=== PATIENT | female | born 1970 | race Caucasian/White ===

== ENCOUNTER → 2017-03-28 | Outpatient (CLI) | payer BC ==
--- NOTE | 2017-03-28 14:04 | KCIC ---
PELVIS W/TV History: Menorrhagia Comparison: None. Findings: Multiple transabdominal sonographic images of the pelvis are submitted. Pelvic structures are poorly visualized. Transvaginal ultrasound: Multiple transvaginal sonographic images of the pelvis are submitted. Uterus measured 9.7 x 5.7 x 6.8 cm. Endometrium is thickened up to 2.4 cm, not associated with significant hypervascularity. There may be a partially septate uterus although poor visualization of the uterus due to bowel gas. Left ovary measured 1.9 x 2.2 x 2 cm. Right ovary measured 2.4 x 1.4 x 1.8 cm. No significant free fluid is demonstrated. There is normal low resistance vascularity of both ovaries. Impression: 1. There is thickening of the endometrium up to 2.4 cm, may be due to hyperplasia, neoplasm not excluded. There is no significant increased vascularity. There may be partially septate uterus. Electronically signed by: Andres Cabrera MD (03/28/2017 2:00 PM) [id number]
== END | disposition home or self-care (01) ==
LOC: KCIC US 12:06
PROVIDERS: ATTEND Nurse Practitioner Family
DX: N92.0 Excessive and frequent menstruation with regular cycle (principal); R93.8 Abnormal findings on diagnostic imaging of other specified body structures
CPT/HCPCS: 76830; 76856